=== PATIENT | male | born 1960 | race Caucasian/White ===

== ENCOUNTER → 2018-06-27 | Outpatient (CLI) | payer BC ==
[~2018-06-27] MED LIST: BP MED PO; CELCEPT; CELEBREX 200MG200 MG PO; KLOR-CON 1010 MEQ; KLOR-CON 1010 MEQ PO; MAXIDE; MAXIDE PO; MUCINEX D 12001 TER PO; NORVASC 10MG10 MG PO; PERCOCET 325 MG1 TA2 PO; PREDNISONE10 MG; PREDNISONE20 MG PO; SYNTHROID 0.0.025 MG PO; VITAMIN D1000 IU PO; ZITHROMAX Z PA250 MG PO; [UNRECOGNIZED DRUG - OTHER] PO; triamterene-hctz
== END ==
LOC: COL.RAD 11:33
DX: K57.30 Diverticulosis of large intestine without perforation or abscess without bleeding (principal)

== ENCOUNTER → 2020-07-31 | Day surgery (SDC) | payer BC ==
[~2020-07-31] MED LIST changes: +ALDACTONE 25MG25 M1 PO; +ASPIRIN 81M81 MG/TA2 PO; +CELLCEPT 5500 MG/TAB PO; +DUO-KAPS1 CAP PO; +K-DUR 10 MEQ T10 MEQ PO; +SYNTHROID 0.10.15 MG PO; +VITAMIN D31000 I1 PO
== END ==
LOC: COL.CAR 12:00
DX: R94.39 Abnormal result of other cardiovascular function study (principal); U07.1 COVID-19; Z53.8 Procedure and treatment not carried out for other reasons

== ENCOUNTER 2020-08-24 10:18 | Day surgery (SDC) | payer BC ==
[2020-08-24] VITALS (10 sets, daily range): BP systolic 107–146; BP diastolic 67–82; PULSE 67–81; TEMP 99.2
[~2020-08-24] VITALS: Ht 185.5 cm; Wt 136.4 kg
[~2020-08-24 10:18] MED LIST changes: -ALDACTONE 25MG25 M1 PO; -ASPIRIN 81M81 MG/TA2 PO; -CELLCEPT 5500 MG/TAB PO; -DUO-KAPS1 CAP PO; -K-DUR 10 MEQ T10 MEQ PO; -SYNTHROID 0.10.15 MG PO; -VITAMIN D31000 I1 PO
[2020-08-24 11:21] LABS: HEMATOCRIT 42.7 % (42.0-52.0); HEMOGLOBIN 14.4 g/dl (13.5-18.0); MEAN CELL VOLUME 91 fl (80.0-100.0); MEAN CORPUSCULAR HEMOGLOBIN 31 pg (27.0-31.0); MEAN CORPUSCULAR HGB CONC 34 g/dl (33.0-37.0); MEAN PLATELET VOLUME 10.1 fl (7.4-10.4); PLATELET COUNT 296 K/mm3 (130-400); RED BLOOD COUNT 4.67 M/mm3 (4.20-5.60); REDCELL DISTRIBUTION WIDTH-CV 13.2 % (11.5-14.5)
[2020-08-24 11:30] LABS: PROTHROMBIN TIME 10.6 SECONDS (9.7-12.8)
[2020-08-24 11:33] LABS: PARTIAL THROMBOPLASTIN TIME 31.6 SECONDS (26.0-37.0)
[2020-08-24 11:47] LABS: CALCIUM 8.6 mg/dL (8.4-10.2); CREATININE, serum 0.8 (0.66-1.25); POTASSIUM 4.2 mmol/L (3.4-5.0)
[2020-08-24] MEDS ORDERED: SYNTHROID 0.10.15 MG PO (12:04)
[2020-08-24] MEDS ORDERED: CELLCEPT 5500 MG/TAB PO (12:05)
[2020-08-24] MEDS ORDERED: NORVASC 10MG10 MG PO (12:06)
[2020-08-24] MEDS ORDERED: ASPIRIN 81M81 MG/TA2 PO (12:06)
[2020-08-24] MEDS ORDERED: CELEBREX 200MG200 MG PO (12:07)
[2020-08-24] MEDS ORDERED: ALDACTONE 25MG25 M1 PO (12:07)
[2020-08-24] MEDS ORDERED: K-DUR 10 MEQ T10 MEQ PO (12:07)
[2020-08-24] MEDS ORDERED: DUO-KAPS1 CAP PO (12:08)
[2020-08-24] MEDS ORDERED: VITAMIN D31000 I1 PO (12:08)
--- NOTE | 2020-08-24 13:04 | NUR ---
Pt to procedure.
--- NOTE | 2020-08-24 13:17 | NUR ---
SEE MERGE DOCUMENTATION FOR MEDICATION ADMINISTRATION TIMES AND INTRA/POST PROCEDURE SEDATION ASSESSMENTS. RIGHT HAND BARBEAU TEST POSITIVE.
--- NOTE | 2020-08-24 17:04 | NUR ---
Discharge instruction given to pt.pt verbalizes understanding.INT removed,catheter tip intact.Pt escorted out via wheelchair by this nurse.
== END 2020-08-24 17:11 | disposition home or self-care (01) ==
LOC: COL.CAR 10:18
PROVIDERS: Internal Medicine Cardiovascular Disease
DX: I25.10 Atherosclerotic heart disease of native coronary artery without angina pectoris (principal); R94.39 Abnormal result of other cardiovascular function study; I10 Essential (primary) hypertension; G47.30 Sleep apnea, unspecified; K21.9 Gastro-esophageal reflux disease without esophagitis; Z88.1 Allergy status to other antibiotic agents; Z88.8 Allergy status to other drugs, medicaments and biological substances; Z88.0 Allergy status to penicillin
CPT/HCPCS: J1644; J2250; J3010; Q9967

== ENCOUNTER 2022-04-03 09:01 | Day surgery (SDC) | payer BC ==
[~2022-04-03] VITALS: Ht 185.4 cm; Wt 134.5 kg
[2022-04-03] VITALS (8 sets, daily range): BP systolic 131–164; BP diastolic 67–81; PULSE 60–74; TEMP 97.8–98.7
[~2022-04-03 09:01] MED LIST changes: +ALDACTONE 25MG25 M1 PO; +ASPIRIN 81M81 MG/TA2 PO; +CELLCEPT 5500 MG/TAB PO; +DUO-KAPS1 CAP PO; +K-DUR 10 MEQ T10 MEQ PO; +SYNTHROID 0.10.15 MG PO; +VITAMIN D31000 I1 PO
--- NOTE | 2022-04-03 09:45 | NUR ---
0916 ADMITTED AMBULATORY TO ROOM 5. PATIENT ALERT, ORIENTED, COOPERATIVE. PROCEDURE VERIFIED, CONSENT SIGNED. VITAL SIGNS OBTAINED. PATIENT DENIES PAIN AT THIS TIME. RESP UNLABORED, LUNG SOUNDS CLEAR WITH AUSCULTATION. 0940 IV STARTED IN RIGHT HAND WITHOUT DIFFICULTY. 0945 IN ROOM. CALL LIGHT IN REACH.
[2022-04-03] MEDS ORDERED: FLOMAX 0.40.4 MG/CAP PO (12:33)
[2022-04-03] MEDS ORDERED: NORCO 325 MG-51 TAB PO (12:33)
--- NOTE | 2022-04-03 16:10 | NUR ---
1320 RETURNS TO ROOM 5 PER CART. AWAKE, ALERT. EXPRESSES PRESENCE OF URINARY URGENCY. AMBULATES TO BATHROOM WITH 2 STAND BY ASSIST. VOIDS SMALL AMOUNT OF LIGHT RED URINE. ASSISTED BACK TO CART. LYING SUPINE WITH HOB ELEVATED 40 DEGREES. REPORTS SLIGHT NAUSEA. NO VOMITTING. HERE 1345 PATIENT EXPRESSES PRESENCE OF FREQUENT URINARY URGENCY. VOIDS IN SMALL AMOUNTS, LIGHT RED URINE. NO NAUSEA REPORTED AT THIS TIME. TOLERATES PO WATER. 1400 PATIENT REPORTS LESS NAUSEA NOW. CONTINUED URINARY URGENCY WITH LEFT FLANK/ABD DISCOMFORT. REPOSISITIONS ON CART. LEAVES TO GET PRESCRIPTIONS. 1430 PATIENT DOZING. 1445 AWAKENS AFTER DOZING FOR 45 MINUTES. VOIDS PER URINAL 200 ML. URINE LIGHT PINK. 1540 DISCHARGE INSTRUCTIONS REVIEWED WITH PATIENT AND VERBALIZING UNDERSTANDING. COPY OF INSTRUCTIONS PROVIDED. 1550 SITS ON EDGE OF BED. DRESSES WITH MINIMAL ASSIST FROM .
== END 2022-04-03 16:10 ==
LOC: SDCO 09:01
DX: N20.1 Calculus of ureter (principal)
CPT/HCPCS: C1769; C2617; J0690; J1100; J1170; J2405; J2550; J2704; J3010; J7120; Q9967

== ENCOUNTER → 2023-12-02 | Outpatient (CLI) | payer MEDICARE, OTHER ==
[~2023-12-02] MED LIST changes: +FLOMAX 0.40.4 MG/CAP PO; +NORCO 325 MG-51 TAB PO
== END ==
LOC: COL.RAD 12:52
DX: M79.604 Pain in right leg (principal)